=== PATIENT | male | born 1950 | race Caucasian/White ===

== ENCOUNTER → 2017-05-03 | Day surgery (SDC) | payer OTHER ==
[~2017-05-03] MED LIST: LACTATED RINGER'S 1,000 ML BAG IV ONE; LACTATED RINGER'S 1000 ML INJ 1,000 ML ONE; PROPOFOL 500 MG/50 ML BTL IV ONE
--- NOTE | 2017-05-03 09:29 | GIPROC ---
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 PREP QUALITY: poor ESTIMATED BLOOD LOSS: None CONSENT: The patient understands the risks and benefits of the procedure and understands that these risks include, but are not limited to: sedation, allergic reaction, infection, perforation and/or bleeding. Alternative means of evaluation and treatment include, among others: physical exam, x-rays, and/or surgical intervention. The patient elects to proceed with this endoscopic procedure. medical equipment was checked for proper function. Hand hygiene and appropriate measures for infection prevention was taken. After the risks, benefits and alternatives of the procedure were thoroughly explained, Informed consent was verified, confirmed and timeout was successfully executed by the treatment team. A digital exam revealed no abnormalities of the rectum The EC-[id number] ([id number]) endoscope was introduced through the anus and advanced to the cecum, which was identified by both the appendix and ileocecal valve. The instrument was then slowly withdrawn as the colon was fully examined. COLON FINDINGS: Two medium sized small smooth sessile polyps were found in the distal transverse colon and rectum. A polypectomy was performed with a cold snare. The resection was complete and the polyp tissue was completely retrieved. Moderate diverticulosis was noted throughout the entire examined colon. The colon mucosa was otherwise normal. Retroflexed views revealed no abnormalities The scope was then completely withdrawn from the patient and the procedure terminated. PROCEDURE WITHDRAWAL TIME:10.4minutes ADVERSE EVENTS: There were no complications. IMPRESSIONS: 1. Two medium sized small sessile polyps were found in the distal transverse colon and rectum; polypectomy was performed with a cold snare 2. Moderate diverticulosis was noted throughout the entire examined colon 3. The colon mucosa was otherwise normal 4. Retroflexed views revealed no abnormalities 5. Revealed no abnormalities of the rectum RECOMMENDATIONS: 1. Await biopsy results. Biopsy results will not be ready for 7-10 days. If you don't hear from us in two weeks, call our office for results. 2. High fiber diet. Avoid nuts, seeds, and popcorn. Chew your food well. 3. Follow-up: GI Clinic PRN 4. Yearly hemoccult RECALL: Return 1 year Colonoscopy Pj Silvestre MD eSigned: Pj Silvestre MD 05/03/2017 9:29 AM cc: Todd Prescott M.D and Ruddy Velarde [facility] PATIENT NAME: Camilo Hurley MR#: [id number]
== END | disposition home or self-care (01) ==
LOC: ESDC 07:55
PROVIDERS: ATTEND Internal Medicine Gastroenterology
DX: Z12.11 Encounter for screening for malignant neoplasm of colon (principal); D12.3 Benign neoplasm of transverse colon; K62.1 Rectal polyp; K57.90 Diverticulosis of intestine, part unspecified, without perforation or abscess without bleeding
CPT/HCPCS: 00810; 45385; 88305; J7120